=== PATIENT | male | born 1980 | race African-American/Black ===

== ENCOUNTER 2021-11-29 20:03 | Emergency (ER) | payer MEDICAID, OTHER ==
[~2021-11-29] VITALS: Ht 188 cm; Wt 114.0 kg
[2021-11-29] MEDS ORDERED: ONDANSETRON HCL 4MG/2ML INJ IV STA (20:24)
[2021-11-29] MEDS ORDERED: KETOROLAC 30MG/ML VIAL IV STA (20:24)
[2021-11-29] MEDS ORDERED: MORPHINE SULFATE 4 MG/ML CPJ (NOT FOR IM USE) IV STA (20:24)
[2021-11-29 23:23] VITALS: BP 121/67
== END 2021-11-29 23:26 | disposition home or self-care (01) ==
LOC: ER 20:03
DX: S86.012A Strain of left Achilles tendon, initial encounter (principal); W18.30XA Fall on same level, unspecified, initial encounter; Y93.89 Activity, other specified; Y92.89 Other specified places as the place of occurrence of the external cause; Y99.8 Other external cause status
CPT/HCPCS: 29515; 73610; 96374; 96375; 99284; J1885; J2270; J2405